=== PATIENT | male | born 1990 | race Caucasian/White ===

== ENCOUNTER 2017-05-10 02:49 | Emergency (ER) | payer SELFPAY ==
[2017-05-10 07:18] VITALS: BP 125/86
== END 2017-05-10 07:18 | disposition home or self-care (01) ==
LOC: ED 02:49
DX: S52.501A Unspecified fracture of the lower end of right radius, initial encounter for closed fracture (principal); W19.XXXA Unspecified fall, initial encounter; Y93.89 Activity, other specified; Y92.89 Other specified places as the place of occurrence of the external cause; Y99.8 Other external cause status
CPT/HCPCS: J2001; J3010; Q0092